=== PATIENT | female | born 1960 | race Caucasian/White ===

== ENCOUNTER → 2020-04-26 15:47 | Outpatient (CLI) | payer SELFPAY ==
--- NOTE | ~2020-04-26 | MM_ITS ---
EXAMINATION: MM screening shai BI w stephane HISTORY: Screening TECHNIQUE: Craniocaudal and mediolateral oblique 3-D tomosynthesis images were obtained and synthetic 2-D images were generated. CAD analysis was submitted and interpreted. COMPARISON: Comparison to multiple prior studies sequentially, with oldest reviewed study dated 06/2015. BREAST PARENCHYMAL COMPOSITION: The breasts are heterogeneously dense, which may obscure small masses . FINDINGS: There is no evidence of suspicious mass, calcification, or architectural distortion to sugg est malignancy in either breast. There has been no suspicious interval change. IMPRESSION: 1. No mammographic evidence of malignancy. 2. Recommend routine screening mammography in one year. BI-RADS Category 1: Negative Reviewed, dictated and finalized at location A. FIELD MANAGER
== END ==
PROVIDERS: Visit Provider Obstetrics & Gynecology Gynecology
DX: Z12.31 Encounter for screening mammogram for malignant neoplasm of breast (principal)
CPT/HCPCS: 77063; 77067

== ENCOUNTER → 2020-11-15 08:05 | Outpatient (CLI) | payer SELFPAY ==
--- NOTE | ~2020-11-15 | CT_ITS ---
EXAMINATION: CT abdomen pelvis wo con DATE: 11/15/2020 08:59 INDICATION: Left flank pain, microscopic hematuria TECHNIQUE: Computed tomography (CT) of the abdomen and pelvis was performed without intravenous contr ast. The dose-length product (DLP) was 403.95 mGy-cm. Automated exposure control and iterative recons truction technique were employed. COMPARISON: 11/03/2011 FINDINGS: The lung bases are clear. The heart size is normal. The liver, spleen, pancreas, gallbladde r, and adrenal glands are normal. There is chronic mild right hydronephrosis. There is a left kidney is unremarkable. No urolithiasis is noted. No pathologically enlarged abdominal or pelvic lymph nodes are identified. There is no free intraperitoneal gas or evidence of bowel obstruction. A moderate vo lume of colonic stool is present. There is severe spondylosis at L5-S1. IMPRESSION: 1. Chronic mild right hydronephrosis without significant change. No urolithiasis identified. Reviewed, dictated and finalized at location B. IMPRESSION: 1. Chronic mild right hydronephrosis without significant change. No urolithiasi s identified.
--- NOTE | ~2020-11-15 | XR_ITS ---
EXAMINATION: XR abdomen/kub 1V INDICATION: Unspecified abdominal pain TECHNIQUE: Supine views of the abdomen were obtained on 2 radiographs. COMPARISON: None FINDINGS: A moderate volume of colonic stool is present. The bowel gas pattern is normal. No urolithi asis is identified. The visualized lung bases are clear. IMPRESSION: 1. No urolithiasis identified. Reviewed, dictated and finalized at location B.
== END ==
PROVIDERS: PCP Family Medicine; Visit Provider Family Medicine
DX: R10.9 Unspecified abdominal pain (principal); R31.9 Hematuria, unspecified
CPT/HCPCS: 74018; 74176

== ENCOUNTER 2020-12-12 09:54 | Emergency (ER) | payer SELFPAY ==
--- NOTE | ~2020-12-12 | XR_ITS ---
EXAMINATION: XR chest 2V EXAM DATE: 12/12/2020 10:54 INDICATION: Shortness of breath posterior and anterior chest pain. TECHNIQUE: Frontal and lateral projections of the chest obtained and reviewed. Comparison is made to prior examination from 01/05/2018. FINDINGS: The lungs are hyperinflated which can be seen with chronic obstructive pulmonary disease ( a clinical diagnosis of functional impairment), but is not diagnostic of it. The lungs are clear. Th ere are no pleural effusions. The cardiomediastinal silhouette is within normal limits. There is no pneumothorax suspected. The bones and soft tissues are unremarkable. IMPRESSION: 1. No acute cardiopulmonary findings. 2. Hyperinflation. Reviewed, dictated and finalized at location B.
--- NOTE | ~2020-12-12 | CT_ITS ---
EXAMINATION: CT soft tissue neck w con EXAM DATE: 12/12/2020 13:51 INDICATION: Throat pain. Foreign body sensation, sore throat. TECHNIQUE: Spiral CT of the neck was performed following intravenous injection of 75 mL Omnipaque 350 . Axial, coronal and sagittal images were reviewed. The dose-length product (DLP) for this examinat ion was 297.08 mGy-cm. The exposure was tailored according to patient size (auto mA exposure control ), and iterative reconstruction (ASIR) was used as additional dose reduction technique. There is no prior study for comparison. FINDINGS: The thyroid gland is unremarkable. The submandibular and parotid glands are symmetric. There is no cervical lymphadenopathy. There are no masses identified. The superior mediastinum is unremarkable. The airway is unremarkable. Epiglottis is normal in thickness. Parapharyngeal and pr e-glottic fat planes are preserved. The opacified vasculature is patent. The orbits are unremarka ble. Visualized sinuses and mastoid air cells are well aerated. Mild apical scarring. There is s evere right C3-4 facet arthropathy. 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 No radiopaque foreign bodies identified. IMPRESSION: No radiopaque foreign body identified or acute neck findings. Reviewed, dictated and finalized at location B.
--- NOTE | 2020-12-12 09:58 | ECG_ITS ---
Measurements Intervals [place] Rate: 81 P: 80 SD: 161 QRS: 93 QRSD: 86 T: 49 QT: 380 QTc: 442 Interpretive Statements SINUS RHYTHM POSSIBLE LEFT ATRIAL ENLARGEMENT RIGHT AXIS DEVIATION INCOMPLETE RIGHT BUNDLE BRANCH BLOCK MINIMAL Q WAVES- INFERIOR LEADS BASELINE ARTIFACT- AVR, AVL, AVF BORDERLINE ECG Electronically Signed On 12-13-2020 10:09:55 CDT by Jovan Wooten D.O.
--- NOTE | 2020-12-12 10:44 | PC.NURSE ---
NAD upon arrival, no use of accessary muscles for breathing, able to speak in complete sentences, skin sign wnl.
[2020-12-12 10:45] VITALS: BP 136/78; PULSE 72; RESP 20; TEMP 36.7; O2SAT 100
--- NOTE | 2020-12-12 11:38 | ED.GENADULT ---
HPI - General Adult General Chief complaint: Shortness of Breath/Dyspnea Stated complaint: multiple c/o Time Seen by Provider: 12/12/20 11:27 Source: RN notes reviewed History of Present Illness HPI narrative: Patient presents emergency department from home for multiple complaints. Patient states her initial complaint is that she has had a feeling of a lump stuck in her lower throat for the past 1 week. She states it feels like something is stuck in there states that there is no throat pain but she feels are worse when she tries to swallow. States that the day she developed pain in her right upper chest rating around to her right upper back that was described as sharp and stabbing associate with shortness of breath. She called her PCP and was directed to the ER for further evaluation states chest pain is worse with deep inspiration states she took no medications for the symptoms she denies any fevers or chills rhinorrhea abdominal pain nausea vomiting diarrhea or any other symptoms Related Data Home Medications Medication Instructions Recorded Confirmed alendronate 70 mg tablet 70 mg PO WEEKLY 03/23/19 11/07/20 Allergies Allergy/AdvReac Type Severity Reaction Status Date / Time clindamycin Allergy Intermediate Unknown Verified 11/07/20 12:27 Review of Systems Review of Systems: Narrative: Gen.: Denies fevers or chills Eyes: Denies eye pain or visual change ENT: Reports lump in throat Respiratory: Reports shortness of breath CV: See HPI GI: Denies abdominal pain nausea, emesis or diarrhea Musculoskeletal: Denies back pain or muscle pain Neuro: Denies numbness, tingling, weakness or focal weakness Skin: Denies rash Except as documented, all other systems reviewed and negative ON LICENSE OF [facility] Past Medical History Medical History BMI 20.0-20.9, adult Hematuria Herpes labialis Hydronephrosis Hypothyroidism (acquired) Family History Family History Mother Hypertension Heart disease Father Liver disease Hepatitis Sibling No problems noted. 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 CARDIOVASCULAR: Regular rate and rhythm without murmurs rubs or gallops. ABDOMINAL: Soft, nontender, nondistended, no rebound or guarding MUSCULOSKELETAl: Moves all extremities. No clubbing, cyanosis or edema. Back: No midline thoracic or lumbar tenderness to palpation. Tender to palpation over right paravertebral muscles T4-7 NEURO: Awake and alert. Following commands, speech normal, no focal deficits SKIN:: Warm, dry. No rashes lesions or abrasions PSYCHIATRIC: Normal affect/mood, Course Course Emergency Course: Patient able to eat and drink in ED with no difficulty Discussed with patient results of workup and diagnosis. Discussed need for follow-up with primary care, proper use of medication, and reasons to return to the emergency department. Patient understands and agrees to current treatment plan Vital Signs Vital signs: Vital Signs Temperature 98.0 F 12/12/20 10:45 Pulse Rate 72 12/12/20 10:45 Respiratory Rate 20 12/12/20 10:45 Blood Pressure 136/78 12/12/20 10:45 Pulse Oximetry 100 12/12/20 10:45 Temperature 98.0 F 12/12/20 10:45 Pulse Rate 67 12/12/20 16:28
[2020-12-12 12:11] VITALS: BP 111/71; PULSE 64; RESP 18; O2SAT 100
[2020-12-12 12:13] LABS: Basophils Percent Auto 0.6 % (0.2-1.2); Eosinophils Absolute Auto 0.1 K/mm3 (0-0.3); Eosinophils Percent Auto 1.7 % (0-4.4); Hematocrit 39.9 % (37.0-47.0); Hemoglobin 13.3 g/dL (12.0-15.0); Immature Granulocyte Absolute 0.01 K/mm3 (0.00-0.031); Immature Granulocyte Percent A 0.2 % (0-0.5); Lymphocytes Absolute Auto 2.21 K/mm3 (0.9-3.2); Mean Corpuscular HGB Conc 33.3 g/dl (32-36); Mean Corpuscular Hemoglobin 30.9 pg (26-34); Mean Corpuscular Volume 92.6 fl (80-100); Mean Platelet Volume 9.8 fl (7.4-10.4); Monocytes Absolute Auto 0.3 K/mm3 (0.1-0.6); Monocytes Percent Auto 6.3 % (2.6-8.5); Neutrophils Absolute Auto 2.7 K/mm3 (1.3-6.7); Neutrophils Percent Auto 50.2 % (45.5-73.1); Platelet Count Result 231 k/mm3 (150-375); Red Blood Count 4.31 M/mm3 (4.2-5.4); Red Cell Distribution Width 13.1 % (11.5-14.5); White Blood Count 5.4 K/mm3 (4.5-10.0)
[2020-12-12 12:26] LABS: D Dimer 0.27 ug/mL (<0.48)
[2020-12-12 12:27] LABS: Alanine Aminotransferase 29 U/L (4-35); Albumin Level 4.7 g/dL (3.5-5.1); Alkaline Phosphatase 42 U/L (38-126); Aspartate Amino Transferase 27 U/L (14-36); Bilirubin,Total 0.4 mg/dL (0.2-1.3); Lipase 137 U/L (23-300)
[2020-12-12 12:28] LABS: Anion Gap 7 mmol/L (8-16); Blood Urea Nitrogen 14 mg/dL (7-17); Carbon Dioxide 30 mmol/L (22-30); Chloride 101 mmol/L (98-107); Estimated CRCL calculation 58 ml/min; Estimated Glomerular Filt Rate > 60; Glucose 103 mg/dL (65-110); Sodium 138 mmol/L (137-145)
[2020-12-12 12:36] LABS: NT Pro B Type Natriuretic Pept 124 pg/mL (5-100)
[2020-12-12 13:32] VITALS: BP 131/77; PULSE 64; RESP 16; O2SAT 100
[2020-12-12 13:39] LABS: Troponin I < 0.012 ng/mL (0.000-0.034)
[2020-12-12 16:12] LABS: Troponin I < 0.012 ng/mL (0.000-0.034)
[2020-12-12 16:28] VITALS: BP 132/86; PULSE 67; RESP 18; O2SAT 98
== END 2020-12-12 16:59 | disposition home or self-care (01) ==
PROVIDERS: Emergency Provider Emergency Medicine; PCP Family Medicine
DX: M54.6 Pain in thoracic spine (principal); R07.89 Other chest pain; R07.0 Pain in throat; E03.9 Hypothyroidism, unspecified; I45.10 Unspecified right bundle-branch block; R94.31 Abnormal electrocardiogram [ECG] [EKG]
CPT/HCPCS: 36415; 70491; 71046; 80048; 80076; 83690; 83880; 84484; 85025; 85380; 87081; 87880; 93005; 99284; Q9967

== ENCOUNTER 2021-02-13 12:36 | Outpatient (CLI) | payer SELFPAY ==
--- NOTE | 2021-02-13 12:49 | ECHO_ITS ---
Patient Info Name: Viviana Nieves Age: 60 years : 1960 Gender: Female Ht: 66 in Wt: 127 lbs BSA: 1.63 m2 HR: 68 bpm BP: 106 / 70 mmHg Heart Rhythm: Sinus Rhythm Technical Quality: Good Exam Date: 02/13/2021 12:57 PM Exam Location: [facility]monary Patient Status: Outpatient Admit Date: 02/13/2021 Staff Ordering Physician: Val Brown NP Zipper Ironer: Prisca Estrada RDCS Attending Provider: Val Brown NP Referring Physician: Stephanie AUGUSTIN; Exam Type: CA echo doppler color flow Study Info Complete two-dimensional, color flow and Doppler transthoracic echocardiogram is performed. Summary 1. Complete two-dimensional, color flow and Doppler transthoracic echocardiogram is performed. 2. Left ventricular chamber size, wall thickness, systolic and diastolic function are normal with no regional wall motion abnormalities with an estimated ejection fraction of 60-65%. 3. No significant valve disease. 4. Normal sinus rhythm. Left Ventricle Left ventricular chamber dimension is normal. Left ventricular systolic function is normal, estimated at 60-65%. There is no increased left ventricular wall thickness. Left ventricular septal wall motion is normal. The left ventricular diastolic function is normal. Left ventricular chamber size, wall thickness, systolic and diastolic function are normal with no regional wall motion abnormalities with an estimated ejection fraction of 60-65%. Right Ventricle Right ventricular chamber dimension is normal. Right ventricular systolic function is normal. Left Atria Left atrial chamber dimension is normal. Right Atria Right atrial chamber dimension is normal. Aortic Valve The aortic valve is trileaflet. There is no aortic valve sclerosis. There is no aortic valve stenosis. There is no aortic valve regurgitation. Pulmonic Valve The pulmonic valve is normal. There is no pulmonic valve stenosis. There is trace pulmonic regurgitation. Mitral Valve The mitral valve has normal leaflets. There is no mitral valve stenosis. There is no mitral valve regurgitation. Tricuspid Valve The tricuspid valve leaflets are normal. There is no significant tricuspid valve stenosis. There is trace tricuspid valve regurgitation. No pulmonary hypertension, estimated pulmonary arterial systolic pressure is 28 mmHg. Pericardium/Pleural The pericardium appears normal. There is no pericardial effusion. Inferior Vena Cava Normal inferior vena cava with >50% collapse upon inspiration consistent with Empty right atrial pressure, 10 mmHg. Aorta The aortic root size at the sinus of Valsalva is normal. The prox ascending aorta size is normal. Left Ventricular Outflow Tract Name Value Normal LVOT 2D LVOT Diameter 2.0 cm LVOT Doppler LVOT Peak Gradient 5 mmHg LVOT Mean Gradient 3 mmHg LVOT VTI 23 cm LVOT VTI/AV VTI Ratio 0.9 LVOT Stroke Volume 71 ml LVOT CO
== END 2021-02-13 12:37 | disposition home or self-care (01) ==
PROVIDERS: PCP Family Medicine; Visit Provider Nurse Practitioner Family
DX: R79.89 Other specified abnormal findings of blood chemistry (principal); R94.31 Abnormal electrocardiogram [ECG] [EKG]
CPT/HCPCS: 93306

== ENCOUNTER → 2021-09-13 12:14 | Outpatient (CLI) | payer SELFPAY ==
--- NOTE | ~2021-09-13 | MM_ITS ---
EXAMINATION: MM screening shai BI w stephane HISTORY: Screening TECHNIQUE: Craniocaudal and mediolateral oblique 3-D tomosynthesis images were obtained and synthetic 2-D images were generated. CAD analysis was submitted and interpreted. COMPARISON: Comparison to multiple prior studies sequentially, with oldest reviewed study dated 06/2015. BREAST PARENCHYMAL COMPOSITION: The breasts are heterogeneously dense, which may obscure small masses . FINDINGS: There is no evidence of suspicious mass, calcification, or architectural distortion to sugg est malignancy in either breast. There has been no suspicious interval change. IMPRESSION: 1. No mammographic evidence of malignancy. 2. Recommend routine screening mammography in one year. BI-RADS Category 1: Negative Reviewed, dictated and finalized at location A.
--- NOTE | ~2021-09-13 | DEXA_ITS ---
Bone Density Report Name: DIANNA QUAN Age: 60 Sex: Female Ethnicity: White Date of : 1960 Indication: osteopenia; monitoring treatment; postmenopausal Referring Provider: DONTE CALLAHAN Study: Bone densitometry was performed. Exam Date: September 13, 2021 Accession number: [id number] Bone Density: Region BMD T-score Z-score Classification AP Spine (L1-L4) 0.854 -1.8 -0.1 Osteopenia Femoral Neck (Left) 0.586 -2.4 -1.0 Osteopenia Total Hip (Left) 0.844 -0.8 0.3 Normal Femoral Neck (Right) 0.576 -2.5 -1.1 Osteoporosis Total Hip (Right) 0.836 -0.9 0.2 Normal Total Hip Mean 0.840 -0.9 0.3 Normal World Health Organization criteria for BMD impression classify patients as: Normal (T-score at or above -1.0), Osteopenia (T-score between -1.0 and -2.5), or Osteoporosis (T-score at or below -2.5). 10-year Fracture Risk: FRAX not reported because: Some T-score for Spine Total or Hip Total or Femoral Neck at or below -2.5 Treated for osteoporosis Previous Exams: Region Exam Age BMD T-score BMD Change BMD Change Date g/cm2 vs Baseline vs Previous AP Spine(L1-L4) 09/13/2021 60 0.854 -1.8 -0.049* 0.009 03/19/2019 58 0.845 -1.8 -0.058* -0.009 12/21/2016 56 0.854 -1.8 -0.049* 0.030* 12/16/2014 54 0.824 -2.0 -0.078* 0.022 09/11/2013 52 0.802 -2.2 -0.101* -0.101* 11/03/2010 50 0.903 -1.3 Total Hip(Left) 09/13/2021 60 0.844 -0.8 0.025 -0.018 03/19/2019 58 0.862 -0.7 0.043* 0.017 12/21/2016 56 0.845 -0.8 0.026 0.060* 12/16/2014 54 0.785 -1.3 -0.034* -0.048* 09/11/2013 52 0.833 -0.9 0.014 0.014 11/03/2010 50 0.819 -1.0 Total Hip(Right) 09/13/2021 60 0.836 -0.9 0.009 0.002 03/19/2019 58 0.835 -0.9 0.007 0.039* 12/21/2016 56 0.796 -1.2 -0.031* 0.007 12/16/2014 54 0.789 -1.3 -0.038* -0.035* 09/11/2013 52 0.824 -1.0 -0.003 -0.003 11/03/2010 50 0.827 -0.9 *Denotes significance at 95% confidence level, LSC for AP Spine = 0.022 g/cm2, LSC for Total Hip = 0.027 g/cm2 Clinical Information Provided by Patient: Is being treated for osteoporosis Has used the following medications: Fosamax (i.e. alendronate), Vitamin D, Calcium, MTV, LEVOTHYROXINE Patient maximum height was 66.0
== END ==
PROVIDERS: PCP Family Medicine; Visit Provider Obstetrics & Gynecology Gynecology
DX: Z12.31 Encounter for screening mammogram for malignant neoplasm of breast (principal); Z78.0 Asymptomatic menopausal state; M81.0 Age-related osteoporosis without current pathological fracture; M85.88 Other specified disorders of bone density and structure, other site; M85.852 Other specified disorders of bone density and structure, left thigh
CPT/HCPCS: 77063; 77067; 77080

== ENCOUNTER → 2022-09-20 16:07 | Outpatient (CLI) | payer SELFPAY ==
--- NOTE | ~2022-09-20 | MM_ITS ---
EXAMINATION: MM screening [facility] BI w stephane HISTORY: Screening mammogram TECHNIQUE: Craniocaudal and mediolateral oblique 3-D tomosynthesis images were obtained and synthetic 2-D images were generated. CAD analysis was submitted and interpreted. COMPARISON: 09/13/2021, 04/26/2020, 03/19/2019 BREAST PARENCHYMAL COMPOSITION: The breasts are heterogeneously dense, which may obscure small masses . FINDINGS: No suspicious mass, calcification, or architectural distortion are identified in either sukh ast to suggest malignancy. There has been no suspicious interval change. IMPRESSION: 1. No mammographic evidence of malignancy. 2. Recommend routine screening mammography in one year. BI-RADS Category 1: Negative Reviewed, dictated and finalized at location A.
== END ==
PROVIDERS: PCP Nurse Practitioner; Visit Provider Nurse Practitioner
DX: Z12.31 Encounter for screening mammogram for malignant neoplasm of breast (principal)
CPT/HCPCS: 77063; 77067

== ENCOUNTER 2023-10-04 10:15 | Outpatient (CLI) | payer SELFPAY ==
--- NOTE | ~2023-10-04 | DEXA_ITS ---
Bone Density Report Name: DIANNA QUAN Age: 62 Sex: Female Ethnicity: White Date of : 1960 Indication: osteopenia; monitoring treatment; postmenopausal Referring Provider: ANA CRISTINA, BERTHA Study: Bone densitometry was performed. Exam Date: October 04, 2023 Accession number: [id number] Bone Density: Region BMD T-score Z-score Classification AP Spine (L1-L4) 0.849 -1.8 0.0 Osteopenia Femoral Neck (Left) 0.594 -2.3 -0.8 Osteopenia Total Hip (Left) 0.832 -0.9 0.3 Normal Femoral Neck (Right) 0.576 -2.5 -1.0 Osteoporosis Total Hip (Right) 0.838 -0.9 0.4 Normal Total Hip Mean 0.835 -0.9 0.4 Normal World Health Organization criteria for BMD impression classify patients as: Normal (T-score at or above -1.0), Osteopenia (T-score between -1.0 and -2.5), or Osteoporosis (T-score at or below -2.5). 10-year Fracture Risk: FRAX not reported because: Some T-score for Spine Total or Hip Total or Femoral Neck at or below -2.5 Treated for osteoporosis Previous Exams: Region Exam Age BMD T-score BMD Change BMD Change Date g/cm2 vs Baseline vs Previous AP Spine(L1-L4) 10/04/2023 62 0.849 -1.8 -0.054* -0.005 09/13/2021 60 0.854 -1.8 -0.049* 0.009 03/19/2019 58 0.845 -1.8 -0.058* -0.009 12/21/2016 56 0.854 -1.8 -0.049* 0.030* 12/16/2014 54 0.824 -2.0 -0.078* 0.022 09/11/2013 52 0.802 -2.2 -0.101* -0.101* 11/03/2010 50 0.903 -1.3 Total Hip(Left) 10/04/2023 62 0.832 -0.9 0.013 -0.013 09/13/2021 60 0.844 -0.8 0.025 -0.018 03/19/2019 58 0.862 -0.7 0.043* 0.017 12/21/2016 56 0.845 -0.8 0.026 0.060* 12/16/2014 54 0.785 -1.3 -0.034* -0.048* 09/11/2013 52 0.833 -0.9 0.014 0.014 11/03/2010 50 0.819 -1.0 Total Hip(Right) 10/04/2023 62 0.838 -0.9 0.011 0.002 09/13/2021 60 0.836 -0.9 0.009 0.002 03/19/2019 58 0.835 -0.9 0.007 0.039* 12/21/2016 56 0.796 -1.2 -0.031* 0.007 12/16/2014 54 0.789 -1.3 -0.038* -0.035* 09/11/2013 52 0.824 -1.0 -0.003 -0.003 11/03/2010 50 0.827 -0.9 *Denotes significance at 95% confidence level, LSC for AP Spine = 0.022 g/cm2, LSC for Total Hip = 0.027 g/cm2 Clinical Information Provided by Patient:
== END 2023-10-04 10:16 ==
PROVIDERS: PCP Family Medicine; Visit Provider Nurse Practitioner
DX: M81.0 Age-related osteoporosis without current pathological fracture (principal); M25.522 Pain in left elbow
CPT/HCPCS: 77080

== ENCOUNTER 2023-10-17 11:21 | Outpatient (CLI) | payer SELFPAY ==
--- NOTE | ~2023-10-17 | MM_ITS ---
EXAMINATION: MM screening shai BI w stephane HISTORY: Screening TECHNIQUE: Craniocaudal and mediolateral oblique 3-D tomosynthesis images were obtained and synthetic 2-D images were generated. CAD analysis was submitted and interpreted. COMPARISON: Comparison to multiple prior studies sequentially, with oldest reviewed study dated 08/2016. BREAST PARENCHYMAL COMPOSITION: Dense: The breasts are heterogeneously dense, which may obscure small masses FINDINGS: There is no evidence of suspicious mass, calcification, or architectural distortion to sugg est malignancy in either breast. There has been no suspicious interval change. IMPRESSION: 1. No mammographic evidence of malignancy. 2. Recommend routine screening mammography in one year. BI-RADS Category 1: Negative Reviewed, dictated and finalized at location B.
== END 2023-10-17 11:22 ==
LOC: MICIMG 11:22
PROVIDERS: PCP Nurse Practitioner; Visit Provider Nurse Practitioner
DX: Z12.31 Encounter for screening mammogram for malignant neoplasm of breast (principal)
CPT/HCPCS: 77063; 77067